=== PATIENT | female | born 1935 | race Hispanic/Latino ===

== ENCOUNTER 2017-04-04 07:11 | Outpatient (CLI) | payer MEDICARE ==
[2017-04-04 08:15] LABS: Blood Urea Nitrogen 21 mg/dL (7-17)
--- NOTE | 2017-04-04 09:27 | Cat Scan Report ---
CT ABDOMEN AND PELVIS WITHOUT AND WITH CONTRAST INDICATION: Gross hematuria. COMPARISON: None similar. FINDINGS: Abdomen and pelvis CT performed before and after intravenous administration of 100 cc of Omnipaque 300. LUNG BASES: Approximately 2 mm noncalcified peripheral right middle lobe nodular density, axial series 2, image 7. Slight bibasilar scarring. Few atherosclerotic calcifications. No effusions. Nonspecific distal esophageal wall prominence/thickening, not excluded for gastroesophageal reflux and/or hiatal hernia, amongst others. ABDOMEN: Precontrast images demonstrate a 2-3 mm nonobstructing left renal calculus superiorly on axial image 26, series 2. A 5 mm calcification about the left ureterovesical junction also seen, axial image 74. Gallbladder appears surgically absent. Postcontrast images demonstrate no focal suspicious hepatic or splenic lesions. Expected post cholecystectomy biliary tree appearance with CBD caliber approximately 7-8 mm at the miles hepatis. Patent veins. Pancreas, adrenals, IVC and kidneys within normal limits. Bilateral extrarenal pelves, left larger than right. No ascites or size significant adenopathy. Nonaneurysmal abdominal aorta with atherosclerotic calcifications. Nonopacified GI tract evaluation limited, though grossly nonobstructive. Mild to moderate colonic stool/possible constipation. PELVIS: Opacified left distal ureter mildly prominent relative to the right with caliber of approximately 5 mm as on axial image 39, series 5, though not significantly dilated. It leads to approximately 5 mm left ureterovesical junction calculus distally, axial image 53, series 5. Otherwise unremarkable urinary bladder. Uterus surgically absent. Mild rectosigmoid stool. Few small pelvic phleboliths. No free fluid or significant adenopathy. Posterior bilateral pedicle rods and screws creating artifact noted from L4-S1 with posterior decompression as well. Demineralized bones. Approximately 3 mm retrolisthesis of L1 over L2 and L2 over L3 also noted. Spinal stenosis at L3-L4 not excluded. Moderately advanced multilevel imaged spinal degenerative changes, including disc narrowing, vacuum phenomenon, adjacent endplate irregularities and degenerative spurring. CONCLUSION: 1. Approximately 5 mm left ureterovesical junction calculus with slight left ureteral prominence without significant hydronephrosis, as described. A smaller 2 mm left upper renal pole calculus also noted. 2. Various other incidental findings, including prior cholecystectomy, hysterectomy and multilevel spinal degenerative and lumbosacral fusion changes, amongst others, as above. Thank you for the opportunity to participate in this patient's care.
== END 2017-04-04 07:12 | disposition home or self-care (01) ==
LOC: CT 07:11
PROVIDERS: ATTEND Urology
DX: N20.0 Calculus of kidney (principal); M48.06 Spinal stenosis, lumbar region; J98.4 Other disorders of lung; I70.0 Atherosclerosis of aorta; I87.8 Other specified disorders of veins; M47.896 Other spondylosis, lumbar region; M43.27 Fusion of spine, lumbosacral region; Z90.49 Acquired absence of other specified parts of digestive tract; Z90.710 Acquired absence of both cervix and uterus
CPT/HCPCS: 36415; 74178; 82565; 84520; Q9967

== ENCOUNTER 2017-05-06 08:30 | Outpatient (CLI) | payer MEDICARE ==
--- NOTE | 2017-05-06 11:21 | Mammography Report ---
Mammogram: Compared to 05/04/16. CAD study utilized. Findings: Predominance adipose tissue bilaterally. Scattered bilateral benign calcifications seen benign densities. No interval change. Benign axillary nodes. Impression: Benign findings. Annual followup recommended. BI-RADS CATEGORY: 2 = Benign ACR BI-RADS MAMMOGRAPHIC CODES: 0 = Needs additional imaging evaluation; 1 = Negative; 2 = Benign; 3 = Probably benign; 4 = Suspicious; 5 = Malignant; 6 = Known biopsy-proven malignancy COMMENT: 1. Dense breast tissue, i.e., adenosis, fibrocystic changes, etc., may obscure an underlying neoplasm. 2. Approximately 10% of cancers are not detected with mammography. 3. A negative mammography report should not delay biopsy if a clinically suspicious mass is present. COMMENT: Patient follow-up letters are generated in [employer]
== END 2017-05-06 08:31 | disposition home or self-care (01) ==
LOC: MAMMO 08:30
PROVIDERS: ATTEND Internal Medicine
DX: Z12.31 Encounter for screening mammogram for malignant neoplasm of breast (principal); I10 Essential (primary) hypertension
CPT/HCPCS: 77067; G0202

== ENCOUNTER 2018-05-08 09:13 | Outpatient (CLI) | payer MEDICARE ==
--- NOTE | 2018-05-09 09:14 | Mammography Report ---
BILATERAL DIGITAL SCREENING MAMMOGRAM with CAD: 05/08/18 09:13:00 CLINICAL: Routine screening. COMPARISON:05/06/17 FINDINGS: There are bilateral scattered areas of fibroglandular density.Bilateral parenchymal asymmetries are unchanged compared to the previous exam. No mass, architectural distortion or suspicious calcifications. IMPRESSION: No mammographic evidence of malignancy. BI-RADS CATEGORY: 2 -- Benign RECOMMENDATION: Routine mammographic screening in one year. COMMENT: Patient follow-up letters are generated by our [employer] application.
== END 2018-05-08 09:14 | disposition home or self-care (01) ==
LOC: MAMMO 09:13
PROVIDERS: ATTEND Internal Medicine
DX: Z12.31 Encounter for screening mammogram for malignant neoplasm of breast (principal); I10 Essential (primary) hypertension; Z88.6 Allergy status to analgesic agent; Z90.49 Acquired absence of other specified parts of digestive tract; Z91.040 Latex allergy status; Z91.048 Other nonmedicinal substance allergy status
CPT/HCPCS: 77067

== ENCOUNTER 2019-05-17 09:37 | Outpatient (CLI) | payer MEDICARE ==
--- NOTE | 2019-05-17 11:23 | Mammography Report ---
BILATERAL DIGITAL SCREENING MAMMOGRAM WITH CAD INDICATION: Routine screening mammography. TECHNIQUE: Digital bilateral 2D mammography was obtained in the craniocaudal and mediolateral obliq ue projections. This examination was interpreted with the benefit of Computer-Aided Detection analysi s. COMPARISON: 05/08/2018 and 05/06/2017 FINDINGS: Breast Density: There are scattered areas of fibroglandular density. No mass, architectural distortion or suspicious calcifications. Bilateral asymmetries are unchanged c ompared to previous exams. IMPRESSION:No mammographic evidence of malignancy. BI-RADS Category 2: Benign. No mammographic evidence of malignancy. Recommend routine screening ma mmography in one year. A "normal" or negative report should not discourage follow up or biopsy of a clinically significant f inding. A written summary of these findings will be mailed to the patient. The patient will be entered into a mammography reporting system which will generate a reminder letter for the patient's next appointmen t at the appropriate interval. The [employer] recommends yearly mammograms starting at age 40 and continuing as l gilberto as a woman is in good health. Breast MRI is recommended for women with an approximate 20-25% or greater lifetime risk of breast cancer, including women with a strong family history of breast or ova mellissa cancer or who have been treated for Hodgkin's disease. Signer Name: Barak Crespo MD Signed: 05/17/2019 11:19 AM Workstation Name: [id number]
== END 2019-05-17 09:38 | disposition home or self-care (01) ==
LOC: SPVWC 09:37
PROVIDERS: ATTEND Internal Medicine
DX: Z12.31 Encounter for screening mammogram for malignant neoplasm of breast (principal); I10 Essential (primary) hypertension; Z90.49 Acquired absence of other specified parts of digestive tract
CPT/HCPCS: 77067

== ENCOUNTER 2019-07-19 08:43 | Emergency (ER) | payer MEDICARE ==
[2019-07-19 08:51] VITALS: BP 136/43
[2019-07-19] MEDS ORDERED: IBUPROFEN 600 MG TAB PO ONE (09:11)
[2019-07-19] MEDS ORDERED: CLINDAMYCIN 300 MG CAP PO ONE (09:11)
--- NOTE | 2019-07-19 09:20 | Emergency Department Report ---
ED Extremity Problem HPI - General Chief complaint: Extremity Injury, Lower Stated complaint: R FOOT SWOLLEN Time Seen by Provider: 07/19/19 09:01 Source: patient Mode of arrival: Ambulatory Limitations: No Limitations - History of Present Illness Initial comments: Patient is a 83-year-old female who is presenting with right foot pain. Patient states over the last 3-4 days she's had progressive worsening swelling and pain to the right foot. This is on the dorsal surface. Patient states that her shoes Rub on her fourth toe and she did have a small abrasion. From this toe and up to the level ankle there is erythema. She denies trauma. Patient states she may have had a slight fever at home yesterday. Pain is aching throbbing is 3 out of 10 in severity. Patient can bear weight. Severity scale (0 -10): 3 - Related Data Previous Rx's Medication Instructions Recorded Last Taken Type Cyclobenzaprine [Flexeril 10mg] 10 mg PO TID PRN #10 tablet 03/27/14 Unknown Rx Clindamycin [Clindamycin CAP] 300 mg PO Q8H #21 cap 07/19/19 Unknown Rx traMADol [Ultram] 50 mg PO Q6HR PRN #10 tablet 07/19/19 Unknown Rx Allergies Allergy/AdvReac Type Severity Reaction Status Date / Time adhesive tape Allergy Rash Unverified 04/04/17 07:18 codeine Allergy Unknown Verified 04/04/17 07:17 latex Allergy Rash Unverified 04/04/17 07:18 ED Review of Systems ROS: Stated complaint: R FOOT SWOLLEN Other details as noted in HPI Comment: All other systems reviewed and negative ED Past Medical Hx - Past Medical History Hx Hypertension: Yes - Surgical History Hx Cholecystectomy: Yes Additional Surgical History: hysterectomy, total right knee replacement, cataract surgery, ganglin cyst removed from left hand - Social History Smoking Status: Never Smoker Substance Use Type: None - Medications Home Medications: Home Medications Medication Instructions Recorded Confirmed Last Taken Type Cyclobenzaprine [Flexeril 10mg] 10 mg PO TID PRN #10 tablet 03/27/14 Unknown Rx Clindamycin [Clindamycin CAP] 300 mg PO Q8H #21 cap 07/19/19 Unknown Rx traMADol [Ultram] 50 mg PO Q6HR PRN #10 tablet 07/19/19 Unknown Rx ED Physical Exam - General Limitations: No Limitations General appearance: alert, in no apparent distress - Head Head exam: Present: atraumatic, normocephalic - Eye Eye exam: Present: normal appearance - ENT ENT exam: Present: mucous membranes moist - Neck Neck exam: Present: normal inspection - Respiratory Respiratory exam: Present: normal lung sounds bilaterally. Absent: respiratory distress - Cardiovascular Cardiovascular Exam: Present: regular rate, normal rhythm, normal heart sounds. Absent: systolic murmur, diastolic murmur, rubs, gallop - GI/Abdominal GI/Abdominal exam: Present: soft, normal bowel sounds - Extremities Exam Extremities exam: Present: normal inspection - Expanded Lower Extremity Exam Right Knee exam: Present: normal inspection Lower Leg exam: Present: normal inspection Ankle exam: Present: normal inspection Foot/Toe exam: Present: tenderness, swelling, erythema (mild warmth) - Back Exam Back exam: Present: normal inspection - Neurological Exam Neurological exam: Present: alert, oriented X3 - Psychiatric Psychiatric exam: Present: normal affect, normal mood - Skin Skin exam: Present: warm, dry, intact, normal color. Absent: rash ED Course Vital Signs 07/19/19 07/19/19 08:50 08:52 Temperature 97.8 F 97.8 F Pulse Rate 73 73 Respiratory 20 18 Rate Blood Pressure 136/43 Blood Pressure 136/43 [Right] O2 Sat by Pulse 97 97 Oximetry ED Medical Decision Making - Medical Decision Making She clinically with a right foot cellulitis. Patient has normal vital signs as good candidate for outpatient therapy. Patient started on clindamycin Critical care attestation.: If time is entered above; I have spent that time in minutes in the direct care of this critically ill patient, excluding procedure time. ED Disposition Clinical Impression: Cellulitis of foot Disposition: DC-01 TO HOME OR SELFCARE Is pt being admited?: No Does the pt Need Aspirin: No Condition: Stable Instructions: Cellulitis (ED) Referrals: ADAM GOLD MD [Staff Physician] - 3-5 Days Time of Disposition: 09:20
== END 2019-07-19 09:27 | disposition home or self-care (01) ==
LOC: ED 08:43
DX: L03.111 Cellulitis of right axilla (principal); I10 Essential (primary) hypertension; Z90.49 Acquired absence of other specified parts of digestive tract; Z90.710 Acquired absence of both cervix and uterus; Z98.890 Other specified postprocedural states; Z79.899 Other long term (current) drug therapy; Z91.048 Other nonmedicinal substance allergy status; Z88.5 Allergy status to narcotic agent; Z91.040 Latex allergy status
CPT/HCPCS: 99282

== ENCOUNTER 2021-05-28 09:27 | Outpatient (CLI) | payer MEDICARE ==
--- NOTE | 2021-05-28 17:34 | Mammography Report ---
DIGITAL SCREENING MAMMOGRAM WITH CAD, 05/28/2021 CLINICAL INFORMATION / INDICATION: Routine screening mammography. TECHNIQUE: Digital bilateral 2D mammography was obtained in the craniocaudal and mediolateral obliqu e projections. This examination was interpreted with the benefit of Computer-Aided Detection analysis . COMPARISON: 05/17/2019 FINDINGS: Breast Density: There are scattered areas of fibroglandular density. No dominant mass, suspicious calcifications, or architectural distortion in either breast. Stable foc al asymmetry in the upper outer right breast. Stable bilateral nodularity and benign scattered calcif ications. No significant interval change. IMPRESSION: No mammographic evidence of malignancy. Follow up recommendation: Routine yearly BI-RADS Category 2: Benign. A "normal" or negative report should not discourage follow up or biopsy of a clinically significant f inding. A written summary of these findings will be mailed to the patient. The patient will be entered into a mammography reporting system which will generate a reminder letter for the patient's next appointmen t at the appropriate interval. The [employer] recommends yearly mammograms starting at age 40 and continuing as l gilberto as a woman is in good health. Breast MRI is recommended for women with an approximate 20-25% or greater lifetime risk of breast cancer, including women with a strong family history of breast or ova mellissa cancer or who have been treated for Hodgkin's disease. Signer Name: Magdalena Chahal MD Signed: 05/28/2021 5:30 PM Workstation Name: [id number]
== END 2021-05-28 09:28 | disposition home or self-care (01) ==
LOC: SPVWC 09:27
PROVIDERS: ATTEND Internal Medicine
DX: Z12.31 Encounter for screening mammogram for malignant neoplasm of breast (principal)
CPT/HCPCS: 77067

== ENCOUNTER 2022-06-16 09:46 | Outpatient (CLI) | payer MEDICARE ==
--- NOTE | 2022-06-18 10:45 | Mammography Report ---
DIGITAL SCREENING MAMMOGRAM WITH CAD, 06/16/2022 CLINICAL INFORMATION / INDICATION: Routine screening mammography. TECHNIQUE: Digital bilateral 2D mammography was obtained in the craniocaudal and mediolateral oblique projections. This examination was interpreted with the benefit of Computer-Aided Detection analysis. COMPARISON: 01/12/2012 through 05/28/2021. FINDINGS: Breast Density: There are scattered areas of fibroglandular density. No dominant mass, suspicious calcifications, or architectural distortion in either breast. Asymmetric breast tissue in the right upper outer quadrant posteriorly is stable. There is left breas t scarring, unchanged. There are also benign scattered calcifications bilaterally. No new abnormality is seen. IMPRESSION: No mammographic evidence of malignancy. Follow up recommendation: Routine yearly screening mammogram. BI-RADS Category 2: BENIGN. A "normal" or negative report should not discourage follow up or biopsy of a clinically significant f inding. A written summary of these findings will be mailed to the patient. The patient will be entered into a mammography reporting system which will generate a reminder letter for the patient's next appointmen t at the appropriate interval. The [employer] recommends yearly mammograms starting at age 40 and continuing as l gilberto as a woman is in good health. Breast MRI is recommended for women with an approximate 20-25% or greater lifetime risk of breast cancer, including women with a strong family history of breast or ova mellissa cancer or who have been treated for Hodgkin's disease. Signer Name: Db Santizo MD Signed: 06/18/2022 10:41 AM Workstation Name: [id number]
== END 2022-06-16 09:47 | disposition home or self-care (01) ==
LOC: SPVWC 09:46
PROVIDERS: ATTEND Internal Medicine
DX: Z12.31 Encounter for screening mammogram for malignant neoplasm of breast (principal)
CPT/HCPCS: 77067